=== PATIENT | male | born 1955 | race Caucasian/White ===

== ENCOUNTER 2022-03-07 03:25 | Observation (INO) ==
[2022-03-07] MEDS ORDERED: *HR* FentaNYL (PF) 100 MCG/2 ML VIAL IVP ONE (03:46)
[2022-03-07] MEDS ORDERED: Ondansetron 4 MG/2 ML VIAL IVP ONE (03:48)
[2022-03-07] MEDS ORDERED: Iopamidol - 370 500 ML MLS IVP ONE (03:49)
[2022-03-07 03:55] LABS: Basophils # 0.1 K/mcL (0.0-0.2); Basophils % 0.3 %; Hematocrit 41.2 % (37.5-50.1); Hemoglobin 14.2 g/dL (12.9-16.9); Immature Granulocytes % 1.2 % (0-4); Lymphocytes # 1.3 K/mcL (0.6-4.6); Mean Corpuscular HGB Conc 34.5 g/dL (31.6-35.5); Mean Corpuscular Hemoglobin 32.6 pg (28.0-33.3); Mean Corpuscular Volume 94.5 fL (83.0-100.0); Mean Platelet Volume 9.2 fL (9.4-12.4); Monocytes # 1.8 K/mcL (0.0-1.3); Monocytes % 4.1 %; Neutrophils # 40.4 K/mcL (1.6-8.9); Platelet Count 344 K/mcL (140-400); Red Blood Count 4.36 M/mcL (4.19-5.50); Red Cell Distribution Width 13.5 % (11.5-14.5); Segmented Neutrophils % 91.4 %
[2022-03-07 03:58] LABS: White Blood Count 44.2 K/mcL (4.3-11.1)
[2022-03-07] MEDS ORDERED: Piperacillin/Tazobactam 3.375 GM in 0.9 % Sodium Chloride Mini Bag 100 ML IVPB ONE (03:59)
[2022-03-07] MEDS ORDERED: 0.9 % Sodium Chloride 1,000 ML IVC ONE ×2 (03:59→09:42)
[2022-03-07 04:00] LABS: Platelet Estimate Normal (Normal)
[2022-03-07] MEDS ORDERED: VANCOMYCIN IVPB ONE (04:00)
[2022-03-07] MEDS ORDERED: *HR* HYDROmorphone (PF) 1 MG/ML SYRINGE IVP ONE ×2 (04:00→05:52)
[2022-03-07] MEDS ORDERED: SODIUM CHLORIDE 0.9% IVPB ONE (04:00)
[2022-03-07 04:08] LABS: BUN/Creatinine Ratio 21 (6-26); Blood Urea Nitrogen 19 mg/dL (8-23); Calcium 9.9 mg/dL (8.6-10.3); Carbon Dioxide 26 mEq/L (23-29); Chloride 96 mEq/L (98-107); Glucose 145 mg/dL (70-105); Osmolality,Calculated 281 (280-300); Potassium 4.2 mEq/L (3.5-5.1); Sodium 133 mEq/L (136-145); eGFR For African Americans > 60 (> 60); eGFR For Non-African Americans > 60 (> 60)
[2022-03-07] MEDS: *HR* HYDROmorphone 2 MG/ML SYRINGE IVP PRN ×3 (10:37→18:56)
[2022-03-07 10:42] LABS: Bilirubin,Urine Negative (Negative); Blood,Urine Moderate (Negative); Clarity,Urine Clear (Clear); Color,Urine Yellow (Yellow); Glucose,Urine (UA) Normal (Normal); Ketones,Urine Negative (Negative); Leukocyte Esterase,Urine Small (Negative); Nitrite,Urine Positive (Negative); PH,Urine 5.5 pH Units (5.0-8.0); Protein,Urine Negative (Neg-Trace); Urobilinogen,Urine Normal (Normal)
[2022-03-07 10:52] LABS: Bacteria,Urine Moderate per hpf (None-Few); WBC,Urine 30-50 per hpf (0-3)
[2022-03-07] MEDS: Piperacillin/Tazobactam 3.375 GM in 0.9 % Sodium Chloride Mini Bag 100 ML IVPB SCH ×2 (14:36→22:59)
[2022-03-07] MEDS ORDERED: Ibuprofen 800 MG TABLET PO ONE (15:26)
[2022-03-07] MEDS ORDERED: Vancomycin 1,750 MG/517.5 ML IV.SOLN IVPB SCH (16:00)
[2022-03-07] MEDS ORDERED: Naloxone 0.4 MG/ML INJ IVP PRN (16:39)
[2022-03-07] MEDS ORDERED: Acetaminophen 325 MG TABLET PO PRN (16:39)
[2022-03-07] MEDS ORDERED: Ondansetron 4 MG/2 ML VIAL IVP PRN (16:39)
[2022-03-07 16:41] LABS: Basophils # 0.2 K/mcL (0.0-0.2); Basophils % 0.3 %; Hematocrit 37.9 % (37.5-50.1); Hemoglobin 12.7 g/dL (12.9-16.9); Immature Granulocytes % 3.2 % (0-4); Lymphocytes # 1.6 K/mcL (0.6-4.6); Mean Corpuscular HGB Conc 33.5 g/dL (31.6-35.5); Mean Corpuscular Hemoglobin 32.3 pg (28.0-33.3); Mean Corpuscular Volume 96.4 fL (83.0-100.0); Mean Platelet Volume 9.3 fL (9.4-12.4); Monocytes # 3.1 K/mcL (0.0-1.3); Monocytes % 5.8 %; Platelet Count 304 K/mcL (140-400); Red Blood Count 3.93 M/mcL (4.19-5.50); Red Cell Distribution Width 13.8 % (11.5-14.5); Segmented Neutrophils % 87.7 %
[2022-03-07] MEDS ORDERED: 0.9 % Sodium Chloride 1,000 ML IVC SCH (16:45)
[2022-03-07 16:53] LABS: White Blood Count 53.6 K/mcL (4.3-11.1)
[2022-03-07 17:16] LABS: Platelet Estimate Normal (Normal)
[2022-03-08] MEDS: *HR* HYDROmorphone 2 MG/ML SYRINGE IVP PRN ×3 (00:48→09:38)
[2022-03-08] MEDS: Piperacillin/Tazobactam 3.375 GM in 0.9 % Sodium Chloride Mini Bag 100 ML IVPB SCH ×2 (01:02→08:42)
[2022-03-08] MEDS: *HR* HYDROcodone/Acet 5/325 mg TABLET PO PRN ×2 (03:00→08:58)
[2022-03-08 04:48] LABS: Hematocrit 34.4 % (37.5-50.1); Hemoglobin 11.3 g/dL (12.9-16.9); Mean Corpuscular HGB Conc 32.8 g/dL (31.6-35.5); Mean Corpuscular Hemoglobin 32.3 pg (28.0-33.3); Mean Corpuscular Volume 98.3 fL (83.0-100.0); Mean Platelet Volume 9.4 fL (9.4-12.4); Platelet Count 230 K/mcL (140-400); Red Cell Distribution Width 13.7 % (11.5-14.5)
[2022-03-08 04:51] LABS: White Blood Count 31.8 K/mcL (4.3-11.1)
[2022-03-08 05:01] VITALS: RESP 16
[2022-03-08 05:05] LABS: Alanine Aminotransferase 26 Units/L (7-52); Albumin 3.3 g/dL (3.5-5.7); Alkaline Phosphatase 74 Units/L (34-104); Aspartate Amino Transferase 22 Units/L (13-39); BUN/Creatinine Ratio 21 (6-26); Bilirubin,Total 0.7 mg/dL (0.3-1.0); Blood Urea Nitrogen 18 mg/dL (8-23); Calcium 9.4 mg/dL (8.6-10.3); Carbon Dioxide 28 mEq/L (23-29); Chloride 103 mEq/L (98-107); Globulin 3.2 g/dL (2.4-3.5); Glucose 122 mg/dL (70-105); Osmolality,Calculated 287 (280-300); Potassium 4.5 mEq/L (3.5-5.1); Sodium 137 mEq/L (136-145); Total Protein 6.5 g/dL (6.4-8.9); eGFR For African Americans > 60 (> 60); eGFR For Non-African Americans > 60 (> 60)
[2022-03-08 05:51] VITALS: O2SAT 97
[2022-03-08] MEDS ORDERED: *HR* Enoxaparin 40 MG/0.4 ML SYRINGE SQ SCH (06:00)
[2022-03-08 07:02] VITALS: BP 156/78; PULSE 61; TEMP 97.8
[2022-03-08] MEDS ORDERED: allopurinoL 300 MG TABLET PO SCH (09:00)
[2022-03-08] MEDS ORDERED: Vancomycin 1,750 MG/517.5 ML IV.SOLN IVPB SCH (10:00)
[2022-03-08 11:53] LABS: C-Reactive Protein 183 mg/L (Less than 10)
== END 2022-03-08 09:40 | disposition short-term general hospital (02) ==
LOC: INPGRE 03:25 → EMEROOGRE 03:25 → INPGRE 17:14
PROVIDERS: ADMIT Family Medicine; ATTEND Family Medicine